=== PATIENT | female | born 1960 | race Asian ===

== ENCOUNTER 2019-03-21 21:58 | Emergency (ER) | payer SELFPAY ==
[~2019-03-21] VITALS: Wt 62.4 kg
[2019-03-21 22:02] VITALS: BP 179/81; PULSE 72; RESP 24
== END 2019-03-21 22:50 | disposition left against medical advice (07) ==
LOC: FTE 21:58
DX: Z53.21 Procedure and treatment not carried out due to patient leaving prior to being seen by health care provider (principal)